=== PATIENT | male | born 1985 | race Caucasian/White ===

== ENCOUNTER 2024-04-26 17:34 | Emergency (ER) | payer SELFPAY ==
[2024-04-26 17:40] VITALS: BP 133/94
[2024-04-26 18:19] VITALS: BMI 29.2
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
[2024-04-26] MEDS: XYLOCAINE 4% TOPICAL SOLUTION 50 ML TOPICAL (18:37)
[2024-04-26] MEDS: ADACEL 0.5 ML IM (18:38)
[2024-04-26 19:27] VITALS: BP 128/78
[2024-04-26] MEDS: MOTRIN 600 MG PO (19:48)
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
== END 2024-04-26 20:20 | disposition home or self-care (01) ==
LOC: EMR 17:34
PROVIDERS: EMERGENCY PHYSICIAN Emergency Medicine; FAMILY PHYSICIAN Family Medicine
DX: S60.511A Abrasion of right hand, initial encounter (principal); S60.512A Abrasion of left hand, initial encounter; S90.811A Abrasion, right foot, initial encounter; S80.812A Abrasion, left lower leg, initial encounter; S50.312A Abrasion of left elbow, initial encounter; S30.811A Abrasion of abdominal wall, initial encounter; V23.49XA Other motorcycle driver injured in collision with car, pick-up truck or van in traffic accident, initial encounter; Y92.410 Unspecified street and highway as the place of occurrence of the external cause; Z23 Encounter for immunization; Z90.49 Acquired absence of other specified parts of digestive tract
CPT/HCPCS: 99282; 90471; 90715